=== PATIENT | female | born 1945 | race Caucasian/White ===

== ENCOUNTER 2019-03-10 01:13 | Emergency (ER) | payer MEDICARE ==
[~2019-03-10] VITALS: Ht 154.9 cm; Wt 72.6 kg
--- NOTE | ~2019-03-10 | EKG ---
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
[~2019-03-10 01:13] MED LIST: ALLEGRA180 MG PO; AMOXICILLIN500 MG PO; AMPICILLIN500 MG PO; ANUSOL HC30 GM PO; ASPI-COR81 M1 PO; ATIVAN1 MG PO; AUGMENTIN 875875 MG PO; BACTRIM DS 8001 TA1 PO; BENTYL10 MG PO; CARDIZEM CD120 MG PO; CLARITIN10 MG PO; COQ10250 MG PO; COREG25 MG PO; COUMADIN1 MG PO; COUMADIN5 MG PO; COZAAR50 MG PO; DYAZIDE 25 MG-31 CAP PO; ELAVIL25 MG PO; FLONASE ALLERG9.9 ML NAS; HYDROCODONE BIT1 T11 PO; KLOR-CON 1010 ME1 PO; LEVOFLOXACIN500 MG PO; LOMOTIL 0.025 M1 TA1 PO; MIRALAX POWDER255 GM PO; NASAREL0.025 MG/1 INH; PERCOCET 325 MG1 TA5 PO; PROPAFENONE150 MG PO; REGLAN5 MG PO; TIKOSYN0.5 MG PO; TRAMADOL HCL50 MG PO; TYLENOL 8 HOUR650 MG PO; VICODIN 5/500 505 MG PO; WELLBUTRIN SR150 MG PO; WELLBUTRIN75 MG PO; Wellbutrin Sr100 MG PO; XANAX0.25 MG PO; XANAX0.5 MG PO; XANAX1 MG PO; XARE20MG PO; XARELTO10 PO; ZANTAC150 MG PO; ZOFRAN ODT4 MG SL; ZOLOFT100 MG PO; ZOLOFT50 MG PO; Zofran4 MG PO; [UNRECOGNIZED DRUG - OTHER] PO
[2019-03-10 01:17] VITALS: BP 174/94
[2019-03-10 01:42] LABS: BASO % 0.6 % (0.0-1.0); EOS # 0.3 10*3/uL (0.0-0.4); EOS % 4.4 % (1.0-4.0); HEMATOCRIT 39.3 % (37.0-47.0); HEMOGLOBIN 13.3 g/dl (12.0-16.0); LYMPH # 2.9 10*3/uL (1.3-4.4); LYMPH % 44.5 % (27.0-41.0); MEAN CELL VOLUME 95.9 fl (81.0-99.0); MEAN CORPUSCULAR HGB 32.4 pg (27.0-31.0); MEAN CORPUSCULAR HGB CONC 33.8 g/dl (33.0-37.0); MEAN PLATELET VOLUME 9.7 fl (9.6-12.3); MONO # 0.6 10*3/uL (0.1-1.0); MONO % 8.5 % (3.0-9.0); NEUT # 2.8 10*3/uL (2.3-7.9); NEUT % 41.8 % (47.0-73.0); PLATELET COUNT AUTOMATED 188 10*3/uL (130-400); RED CELL DISTRI WIDTH 12.7 % (0-14.5); WHITE BLOOD COUNT 6.6 10*3/uL (4.8-10.8)
[2019-03-10 02:00] LABS: ALBUMIN 3.9 gm/dl (3.1-4.5); ALKALINE PHOSPHATASE 71 U/L (45-117); BUN 10 mg/dl (7-24); CHLORIDE 106 mmol/L (98-107); CREATININE 1.18 mg/dL (0.55-1.02); POTASSIUM 3.8 mmol/L (3.5-5.1); SGOT/AST 27 IU/L (3-35); SGPT/ALT 37 U/L (12-78); SODIUM 140 mmol/L (136-145); TOTAL PROTEIN 7.5 gm/dL (6.4-8.2)
[2019-03-10 02:01] LABS: ACETAMINOPHEN (TYLENOL) < 2.0 ug/ml (10-30); ETHYL ALCOHOL < 3.0 mg/dl (<3); TROPONIN I < 0.015 ng/ml (<0.045)
[2019-03-10 02:17] LABS: BILIRUBIN NEGATIVE (NEGATIVE); BLOOD TRACE-INTACT (NEGATIVE); CLARITY CLEAR (CLEAR); COLOR YELLOW (YELLOW); GLUCOSE NEGATIVE (NEGATIVE); KETONE NEGATIVE (NEGATIVE); LEUKO ESTERASE NEGATIVE (NEGATIVE); NITRITE NEGATIVE (NEGATIVE); SPECIFIC GRAVITY <= 1.005 (1.005-1.030)
[2019-03-10 02:24] LABS: BACTERIA TRACE; EPITHELIAL CELLS 0-2; RBC 0-2 rbc/hpf (0-2); WBC 0-2 wbc/hpf (0-5)
[2019-03-10 02:25] LABS: URINE AMPHETAMINES < 1000 (1000ng/ml); URINE BARBITURATES < 200 (200ng/ml); URINE BENZODIAZEPINES > 200 (200ng/ml); URINE CANNABINOIDS (THC) < 50 (50ng/ml); URINE COCAINE < 300 (300ng/ml); URINE METHADONE < 300 (300ng/ml); URINE OPIATES < 300 (300ng/ml)
[2019-03-10 02:30] LABS: URINE PHENCYCLIDINE < 25 (25ng/ml)
[2019-03-14] MEDS ORDERED: LEVOTHYROXINE100 MC1 PO (15:42)
== END 2019-03-10 03:20 | disposition home or self-care (01) ==
LOC: ED 01:13
PROVIDERS: Student in an Organized Health Care Education/Training Program
DX: F41.9 Anxiety disorder, unspecified (principal); E03.9 Hypothyroidism, unspecified; F32.9 Major depressive disorder, single episode, unspecified; Z79.899 Other long term (current) drug therapy; Z88.1 Allergy status to other antibiotic agents

== ENCOUNTER → 2019-06-30 | Outpatient (CLI) | payer MEDICARE ==
[~2019-06-30] MED LIST changes: +LEVOTHYROXINE100 MC1 PO
[2019-06-30 12:09] LABS: BILIRUBIN NEGATIVE (NEGATIVE); BLOOD 3+ (NEGATIVE); CLARITY SL CLOUDY (CLEAR); COLOR YELLOW (YELLOW); GLUCOSE NEGATIVE (NEGATIVE); KETONE NEGATIVE (NEGATIVE); LEUKO ESTERASE 3+ (NEGATIVE); NITRITE POSITIVE (NEGATIVE); PH 5.5 (5.0-9.0); SPECIFIC GRAVITY <= 1.005 (1.005-1.030); UROBILINOGEN 0.2 E.U./dl (0.2-1.0)
[2019-06-30 12:24] LABS: BACTERIA 3+; EPITHELIAL CELLS 16-20; RBC TNTC rbc/hpf (0-2); WBC TNTC wbc/hpf (0-5)
== END | disposition home or self-care (01) ==
LOC: LAB 11:05
PROVIDERS: Internal Medicine
DX: N39.0 Urinary tract infection, site not specified (principal)

== ENCOUNTER 2019-12-17 14:21 | Inpatient (IN) | payer MEDICARE ==
[2019-12-17] VITALS (9 sets, daily range): BP systolic 100–149; BP diastolic 51–93
[~2019-12-17] VITALS: Ht 157.4 cm; Wt 67.1 kg
[2019-12-17 14:54] LABS: BASO # 0.1 10*3/uL (0.0-0.1); BASO % 0.6 % (0.0-1.0); EOS # 0.2 10*3/uL (0.0-0.4); EOS % 1.8 % (1.0-4.0); HEMATOCRIT 38.1 % (37.0-47.0); HEMOGLOBIN 12.8 g/dl (12.0-16.0); LYMPH # 3.2 10*3/uL (1.3-4.4); LYMPH % 35.4 % (27.0-41.0); MEAN CELL VOLUME 96.9 fl (81.0-99.0); MEAN CORPUSCULAR HGB 32.6 pg (27.0-31.0); MEAN CORPUSCULAR HGB CONC 33.6 g/dl (33.0-37.0); MEAN PLATELET VOLUME 10.3 fl (9.6-12.3); MONO # 0.9 10*3/uL (0.1-1.0); MONO % 10.2 % (3.0-9.0); NEUT # 4.7 10*3/uL (2.3-7.9); NEUT % 51.8 % (47.0-73.0); PLATELET COUNT AUTOMATED 233 10*3/uL (130-400); RED BLOOD COUNT 3.93 10*6/uL (4.10-5.10); RED CELL DISTRI WIDTH 12.7 % (0-14.5); WHITE BLOOD COUNT 9.1 10*3/uL (4.8-10.8)
[2019-12-17 15:05] LABS: ACT PARTIAL THROMBO TIME 26.6 SECONDS (20.0-32.1)
[2019-12-17 15:10] LABS: ALBUMIN 3.9 gm/dl (3.1-4.5); ALKALINE PHOSPHATASE 70 U/L (45-117); BUN 33 mg/dl (7-24); CHLORIDE 107 mmol/L (98-107); CREATININE 1.39 mg/dL (0.55-1.02); POTASSIUM 3.4 mmol/L (3.5-5.1); SGOT/AST 87 IU/L (3-35); SGPT/ALT 74 U/L (12-78); SODIUM 141 mmol/L (136-145); TOTAL PROTEIN 7.5 gm/dL (6.4-8.2)
[2019-12-17 15:12] LABS: TROPONIN I < 0.015 ng/ml (<0.045)
--- NOTE | 2019-12-17 15:30 | NUR ---
RECEIVED REPORT FROM LACHELLE AG
--- NOTE | 2019-12-17 15:45 | NUR ---
TITRATE CARDIZEM TO 7.5 ML/HR, SEE VS AND EMAR.
--- NOTE | 2019-12-17 16:33 | NUR ---
Titrated cardizem to 10 mg/hr per Dr Zhang's order.bp 130/63, hr 133-150's. pt resps easy on RA. Sitting up in bed with family at bedside. Will continue to monitor.
--- NOTE | 2019-12-17 16:55 | NUR ---
Tirated cardizem gtt to 15 mg/hr per titration order. BP 145/73,HR 145-160.
--- NOTE | 2019-12-17 17:07 | NUR ---
DR JENSEN IS PATIENTS NURSE STAFF. PACER RECENTLY CHECKED WITHOUT ISSUE.
[2019-12-17] MEDS ORDERED: DILTIAZEM240 M1 PO (17:41)
[2019-12-17] MEDS ORDERED: XANAX0.25 MG PO (17:42)
[2019-12-17] MEDS ORDERED: COZAAR50 M1 PO (17:44)
[2019-12-17] MEDS ORDERED: XARE20MG PO (17:51)
[2019-12-17] MEDS ORDERED: XANAX0.5 MG PO (17:52)
--- NOTE | 2019-12-17 18:00 | NUR ---
[facility] NOTIFIED OF CONSULT
--- NOTE | 2019-12-17 19:00 | NUR ---
RESTLESS, SINGING, IN CONSTANT MOTION WITH ARMS AND LEGS. DR. CAREY CALLED AND NOTIFIED. WILL ASSESS LATER FOR CT HEAD
--- NOTE | 2019-12-17 20:00 | NUR ---
PT RESTING IN BED AWAKE, ALERT TO PERSON AND PLACE, GETS VERY AGITATED WITH GETTING CLOSE TO PT. PT SINGING AT TIMES AND DRAWS BACK WHRN GETTING NEAR. PT MAKES YOU ASK FOR PERMISSION TO TOUCH HER. VERY OBCESSED WITH TIME. VERY ODD BEHAVIOR. RESP NONLABORED. NO ACUTE DISTRESS NOTED. IVF'S INFUSING ORDERED. DENIES ANY PAIN OR DISCOMFORT AT THIS TIME.
[2019-12-17 21:09] LABS: BILIRUBIN NEGATIVE (NEGATIVE); BLOOD 3+ (NEGATIVE); CLARITY SL CLOUDY (CLEAR); COLOR YELLOW (YELLOW); GLUCOSE NEGATIVE (NEGATIVE); KETONE 3+ (NEGATIVE); SPECIFIC GRAVITY 1.025 (1.005-1.030)
[2019-12-17 21:10] LABS: LEUKO ESTERASE 3+ (NEGATIVE); NITRITE POSITIVE (NEGATIVE); PH 6.5 (5.0-9.0); UROBILINOGEN 0.2 E.U./dl (0.2-1.0)
[2019-12-17 21:11] LABS: BACTERIA 3+; WBC TNTC wbc/hpf (0-5)
[2019-12-18] VITALS (11 sets, daily range): BP systolic 109–134; BP diastolic 48–87
--- NOTE | 2019-12-18 04:45 | NUR ---
PT CONTINUES TO BE RESTLESS AND AGITATED. KEEPS PULLING AT MONITOR LEADS. HALLUCINATING AND TALKING TO NO ONE. ATTEMPTS TO REORIENT PT ARE UNEFFECTIVE. DR CAREY NOTIFIED AND ASKED IF STILL WANTED PT TO GO FOR CT OF HEAD. DR CAREY SAID NOT AT THIS TIME SINCE PT IS STILL SO AGITATED. WILL LET DAYTEAM DECIDE.
[2019-12-18 06:47] LABS: BASO # 0.1 10*3/uL (0.0-0.1); BASO % 0.7 % (0.0-1.0); EOS # 0.2 10*3/uL (0.0-0.4); EOS % 2.4 % (1.0-4.0); HEMATOCRIT 37.4 % (37.0-47.0); HEMOGLOBIN 12.3 g/dl (12.0-16.0); LYMPH # 2.7 10*3/uL (1.3-4.4); LYMPH % 29.8 % (27.0-41.0); MEAN CELL VOLUME 97.4 fl (81.0-99.0); MEAN CORPUSCULAR HGB CONC 32.9 g/dl (33.0-37.0); MEAN PLATELET VOLUME 10.3 fl (9.6-12.3); MONO % 10.8 % (3.0-9.0); NEUT # 5.2 10*3/uL (2.3-7.9); NEUT % 56.1 % (47.0-73.0); PLATELET COUNT AUTOMATED 190 10*3/uL (130-400); RED BLOOD COUNT 3.84 10*6/uL (4.10-5.10); RED CELL DISTRI WIDTH 12.6 % (0-14.5); WHITE BLOOD COUNT 9.2 10*3/uL (4.8-10.8)
[2019-12-18 07:08] LABS: CHLORIDE 112 mmol/L (98-107); CREATININE 0.77 mg/dL (0.55-1.02); PHOSPHOROUS 2.3 mg/dL (2.5-4.9); POTASSIUM 3.4 mmol/L (3.5-5.1); SODIUM 144 mmol/L (136-145)
[2019-12-18 07:09] LABS: BUN 17 mg/dl (7-24)
--- NOTE | 2019-12-18 08:34 | NUR ---
RESTING IN BED. ANXIOUS. DOES HAVE FLIGHT OF IDEAS. ALERT TO PERSON ONLY. BREAKFAST HERE AND REFUSES TO EAT.
--- NOTE | 2019-12-18 11:06 | NUR ---
OBSESSED WITH TIME, COUNTING, AND HAVING TRUST ISSUES WITH STAFF. UP INTO CHAIR AND PLACED BACK TO BED. DR. CASTRO HERE SEE PATIENT
--- NOTE | 2019-12-18 11:33 | NUR ---
YESSENIA HERE TO SEE PATIENT FROM PSYCH
--- NOTE | 2019-12-18 17:00 | NUR ---
PATIENT STATES "MY HEART MONITOR CANNOT BE PLACED OVER PACERMAKER SITE BECAUSE MY HEART DOCTOR SAID IT WOULD NOT CLIENT DEVELOPMENT CONSULTANT ACCURATELY." TALKS IN CIRCLES. ASKS NURSES NAME REPEATEDLY. WANTS THINGS HER WAY AND REQUESTS PERMISSION TO DO ANY CARE.
--- NOTE | 2019-12-18 18:29 | NUR ---
DR. GARRIDO HERE TO SEE PATIENT
--- NOTE | 2019-12-18 20:00 | NUR ---
PT RESTING IN BED AWAKE, CONFUSED AND AGITATED. RESP NONLABORED. NO ACUTE DISTRESS NOTED. NO COMPLAINTS VOICED. IV PATENT AND IVF'S INFUSING ORDERED WITHOUT DIFFICULTY.
[2019-12-19] VITALS: BP 119/62
--- NOTE | 2019-12-19 02:50 | NUR ---
MEDICATED WITH TYLENOL PER PRN ORDER FOR C/O HEADACHE.
[2019-12-19 04:00] VITALS: BP 134/73
--- NOTE | 2019-12-19 04:38 | NUR ---
PT REFUSED BLOOD WORK THIS AM. ATTEMPTED TO HIT Night Out. DR CHEN NOTIFIED.
--- NOTE | 2019-12-19 05:00 | NUR ---
PT VERY AGITATED AND COMBATIVE. CURSING AT STAFF AND ATTEMPTING TO HIT EVERYONE. DR CHEN HERE AND ORDERED HALDOL 2.5MG IV NOW.
--- NOTE | 2019-12-19 05:40 | NUR ---
PT STILL COMBATIVE AND AGITATED. DR CHEN HERE AND SAID TO GIVE ANOTHER DOSE OF HALDOL 2.5MG IV NOW.
[2019-12-19 08:00] VITALS: BP 106/70
--- NOTE | 2019-12-19 08:45 | NUR ---
ALERT AND AWARE OF WHERE SHE IS, VERY CHILDLIKE, SINGING, COUNTING, BUT THEN PT WILL SUDDENLY ATTEMPT TO SWING AT STAFF, SITTER AT BEDSIDE
--- NOTE | 2019-12-19 09:00 | NUR ---
Aspnet Developer in to see patient. There is currently a 1:1 sitter in the room and patient is resting with her eyes closed. Will follow up at a later time.
--- NOTE | 2019-12-19 10:15 | NUR ---
UP TO BSC WITH MINIMAL ASSIST PT CONTINUES TO ACT CHILDLIKE
--- NOTE | 2019-12-19 10:45 | NUR ---
PT REFUSES ECHO
[2019-12-19 12:00] VITALS: BP 120/59
--- NOTE | 2019-12-19 13:48 | NUR ---
PT REFUSES TO LEAVE MONITOR ON DR GARRIDO UPDATED ON ECHO REFUSAL
--- NOTE | 2019-12-19 15:47 | NUR ---
REFUSES VITALS AND ASSESS,ENT, PT WILL NOT ALLOW ANYONE TO COME NEAR HER
--- NOTE | 2019-12-19 19:52 | NUR ---
PT. REFUSING TO WEAR MONITOR OR ATTACH LEADS TO CHEST. UNABLE TO ASSESS CARDIAC RHYTHM. PT. UNCOOPERATIVE WITH CARE AND REMAINS CONFUSED AND AT TIMES COMBATIVE. 1:1 SITTER AT BEDSIDE. IVF CONTINUE ORDERED VIA LH, HEP LOCK IN RA ASYMPT. LUNGS DIMINISHED BUT CLEAR. ABDOMEN SOFT ,NONDISTENDED AND NORMO. NO PERIPHERAL EDEMA NOTED. RESP. EASY AND REG NO DISTRESS. MAUREEN MAKI RN
[2019-12-19 20:00] VITALS: BP 157/66
[2019-12-20] VITALS: BP 128/66
[2019-12-20 04:00] VITALS: BP 165/74
[2019-12-20 04:52] LABS: CHLORIDE 111 mmol/L (98-107); CREATININE 0.64 mg/dL (0.55-1.02); POTASSIUM 3.5 mmol/L (3.5-5.1); SODIUM 146 mmol/L (136-145)
[2019-12-20 04:55] LABS: BUN 5 mg/dl (7-24)
[2019-12-20 06:04] LABS: BASO % 0.7 % (0.0-1.0); EOS # 0.3 10*3/uL (0.0-0.4); EOS % 4.3 % (1.0-4.0); HEMATOCRIT 35.5 % (37.0-47.0); HEMOGLOBIN 11.5 g/dl (12.0-16.0); LYMPH # 2.3 10*3/uL (1.3-4.4); LYMPH % 38.1 % (27.0-41.0); MEAN CELL VOLUME 98.9 fl (81.0-99.0); MEAN CORPUSCULAR HGB CONC 32.4 g/dl (33.0-37.0); MEAN PLATELET VOLUME 10.7 fl (9.6-12.3); MONO # 0.6 10*3/uL (0.1-1.0); MONO % 9.5 % (3.0-9.0); NEUT # 2.9 10*3/uL (2.3-7.9); NEUT % 47.2 % (47.0-73.0); PLATELET COUNT AUTOMATED 168 10*3/uL (130-400); RED BLOOD COUNT 3.59 10*6/uL (4.10-5.10); RED CELL DISTRI WIDTH 12.6 % (0-14.5)
--- NOTE | 2019-12-20 08:15 | NUR ---
Head is covered with blanket. Refuses heart monitor and temperature being taken. Pulse ox 96% on room air. Lungs clear bilaterally. Refuses to speak. Nods yes and no when questions asked. When asked if she is afraid, she nods yes. Breakfast ordered
--- NOTE | 2019-12-20 09:00 | NUR ---
Sitting in chair at window. Yelling out "here pretty boy."
--- NOTE | 2019-12-20 11:30 | NUR ---
hand over chest and states that my heart is not working right until i place my hand over my chest.
[2019-12-20 12:00] VITALS: BP 141/76; BP 156/78
--- NOTE | 2019-12-20 12:13 | NUR ---
CALLED [facility] AND TALKED WITH JAYA. THEY STATE THAT PATIENT WILL NOT BE ABLE TO COME TODAY TILL AFTER 4P WHEN A BED WILL BE AVAILABLE.
--- NOTE | 2019-12-20 12:16 | NUR ---
Received call from patients daughter Ilene. She is calling to state her fears/concerns regarding her mothers suicidal ideations. She said she has attempted this in the past and patients brother just committed suicide May of 2019. I explained that the patient is alert and oriented and would have to sign herelf into U and she is refusing to do so. Unless there is a reason to believe this patient is an immediate harm to herself or others then patient can be pink slippped by physician into the bhu. She asked if there was a SW to speak with her mother. I told her I would let MARGY Grady know and ask him to reach out to this patient and I would pass her concerns onto case management/Dr. Richardson. Daughter stated the reason she tried this time is because the patient and her boyfriend were discussing their relationship and patient was becoming upset. She is bipolar/depression. The boyfriend asked her to calm down and take her meds to help her calm down. Patient then stated "if you want me to take my meds then I'll take my meds!" she then took handfulls of B/P meds and ativan. Patients boyfriend left the house and called [address] his way out. I passed info along to AKBAR and MARGY.
[2019-12-20] MEDS ORDERED: CEFUROXIME AXE500 MG PO (12:32)
[2019-12-20] MEDS ORDERED: VITAMIN D3125 MC1 PO (12:32)
--- NOTE | 2019-12-20 12:47 | NUR ---
Attempted to reach son, Gonzalo, who is at work. Spoke to [id number] regarding discharge planning. Patient normally lives at home by herself and her dog. The [id number] is currently taking care of her dog. She is normally independent in her ADLs and ambulation. Discussed a stay on U and family is agreeable. She states this is the second time this has happened to her. Plan is for patient to return home as long as she is able to.
--- NOTE | 2019-12-20 14:00 | NUR ---
TRANSFERRED TO ROOM 524 VIA CHAIR. REPORT CALLED TO MONICA
--- NOTE | 2019-12-20 14:31 | NUR ---
Spoke to Alea at [employer] regarding inpatient mental health authorization. Patient is authorized for 3 days, NRD 12/21. Auth # [id number]. Concurrent reviewer will be Cristina [phone]. Notified [facility] c4 planner, nurse, and hospitalist nurse director.
--- NOTE | 2019-12-20 14:43 | NUR ---
GIVEN TYLENOL AT THIS TIME FOR C/O LEFT EAR PAIN OF 5/10. WILL CONT TO MONITOR. CALL LIGHT IN REACH.
[2019-12-20 16:00] VITALS: BP 149/69
--- NOTE | 2019-12-20 18:08 | NUR ---
PT DISCHARGED TO U AT THIS TIME. REPORT GIVEN TO NURSE.
== END 2019-12-20 18:08 | disposition home health service (06) | DRG 682 ==
LOC: ED 14:21 → EDHOLD 16:57 → ICCU 16:57 → 5E 12-20 13:32
PROVIDERS: Emergency Medicine; Internal Medicine; ADMIT Internal Medicine
DX: N17.0 Acute kidney failure with tubular necrosis (principal); G93.41 Metabolic encephalopathy; F23 Brief psychotic disorder; Q60.0 Renal agenesis, unilateral; N39.0 Urinary tract infection, site not specified; I48.0 Paroxysmal atrial fibrillation; E87.6 Hypokalemia; R73.9 Hyperglycemia, unspecified; E03.9 Hypothyroidism, unspecified; F43.10 Post-traumatic stress disorder, unspecified; I12.9 Hypertensive chronic kidney disease with stage 1 through stage 4 chronic kidney disease, or unspecified chronic kidney disease; N18.9 Chronic kidney disease, unspecified; F41.9 Anxiety disorder, unspecified; G89.29 Other chronic pain; F32.9 Major depressive disorder, single episode, unspecified; Z90.710 Acquired absence of both cervix and uterus; K58.9 Irritable bowel syndrome, unspecified; Z88.1 Allergy status to other antibiotic agents; Z82.3 Family history of stroke; Z82.49 Family history of ischemic heart disease and other diseases of the circulatory system; Z95.0 Presence of cardiac pacemaker; Z79.899 Other long term (current) drug therapy; Z79.01 Long term (current) use of anticoagulants

== ENCOUNTER → 2023-12-31 | Outpatient (CLI) | payer MEDICARE ==
[~2023-12-31] MED LIST changes: +AMOX-CLAV 875-1 EACH PO; +CARDIZEM120 MG PO; +CEFUROXIME AXE500 MG PO; +CETIRIZINE10 MG PO; +COLACE100 MG PO; +COZAAR50 M1 PO; +DEPAKOTE ER250 MG PO; +DILTIAZEM240 M1 PO; +DIVALPROEX SOD250 MG PO; +EXELON13.3 MG/21 T; +FEOSOL,FER220 MG/5 M PO; +FER-IN-SOL15 MG/1 ML PO; +LEVOXYL88 MCG PO; +MEGA BIOTIN10000 MCG PO; +MELATONIN3 MG PO; +MUCUS RELIEF600 MG PO; +NAMENDA-5 PO; +NEURONTIN300 MG PO; +OMEPRAZOLE40 MG PO; +PALIPERIDONE ER3 MG PO; +PILOCARPINE HCL5 MG PO; +VITAMIN D3125 MC1 PO
== END | disposition home or self-care (01) ==
LOC: RAD 12:16
PROVIDERS: ATTEND Nurse Practitioner Family
DX: M25.552 Pain in left hip (principal)

== ENCOUNTER 2024-03-05 07:20 | Emergency (ER) | payer MEDICARE, MEDICAID ==
[~2024-03-05] VITALS: Ht 152.4 cm; Wt 66.2 kg
[2024-03-05 07:40] VITALS: BP 116/56
[2024-03-05] MEDS ORDERED: Ketorolac Tromethamine 30 MG/ML VIAL IM ONE (07:45)
[2024-03-05] MEDS ORDERED: DIGOXIN125 MCG PO (07:50)
[2024-03-05] MEDS ORDERED: TRAMADOL HCL50 MG PO (09:17)
== END 2024-03-05 09:34 | disposition home or self-care (01) ==
LOC: ED 07:20
DX: S92.352A Displaced fracture of fifth metatarsal bone, left foot, initial encounter for closed fracture (principal); G43.909 Migraine, unspecified, not intractable, without status migrainosus; I10 Essential (primary) hypertension; F32.A Depression, unspecified; F41.9 Anxiety disorder, unspecified; I48.91 Unspecified atrial fibrillation; Z88.1 Allergy status to other antibiotic agents; Z88.8 Allergy status to other drugs, medicaments and biological substances; Z90.710 Acquired absence of both cervix and uterus; Z90.89 Acquired absence of other organs; Z98.890 Other specified postprocedural states; W19.XXXA Unspecified fall, initial encounter; Y93.89 Activity, other specified; Y92.89 Other specified places as the place of occurrence of the external cause; Y99.8 Other external cause status

== ENCOUNTER → 2024-04-15 | Outpatient (CLI) | payer MEDICARE ==
[~2024-04-15] MED LIST changes: +DIGOXIN125 MCG PO
[2024-04-15 12:29] LABS: BASO % 0.6 % (0.0-1.0); EOS # 0.2 10*3/uL (0.0-0.4); EOS % 2.3 % (1.0-4.0); HEMATOCRIT 39.5 % (37.0-47.0); LYMPH # 1.6 10*3/uL (1.3-4.4); LYMPH % 21.8 % (27.0-41.0); MEAN CELL VOLUME 98.8 fl (81.0-99.0); MEAN CORPUSCULAR HGB 31.8 pg (27.0-31.0); MEAN CORPUSCULAR HGB CONC 32.2 g/dl (33.0-37.0); MEAN PLATELET VOLUME 9.9 fl (9.6-12.3); MONO # 0.6 10*3/uL (0.1-1.0); MONO % 8.3 % (3.0-9.0); NEUT # 4.8 10*3/uL (2.3-7.9); NEUT % 66.3 % (47.0-73.0); PLATELET COUNT AUTOMATED 147 10*3/uL (130-400); RED CELL DISTRI WIDTH 13.8 % (0-14.5); WHITE BLOOD COUNT 7.3 10*3/uL (4.8-10.8)
[2024-04-15 13:01] LABS: BUN 10 mg/dl (9-23); CHLORIDE 105 mmol/L (98-107); POTASSIUM 4.7 mmol/L (3.4-5.1)
== END | disposition home or self-care (01) ==
LOC: LAB 12:11
DX: I48.0 Paroxysmal atrial fibrillation (principal)

== ENCOUNTER 2024-04-20 08:03 | Emergency (ER) | payer MEDICARE ==
[~2024-04-20] VITALS: Ht 180.3 cm; Wt 63.5 kg
[2024-04-20 08:10] VITALS: BP 135/83
[2024-04-20] MEDS ORDERED: SODIUM CHLORIDE 0.9% 1,000 ML IV ONE (08:25)
[2024-04-20 08:35] LABS: BASO % 0.5 % (0.0-1.0); EOS # 0.2 10*3/uL (0.0-0.4); EOS % 2.2 % (1.0-4.0); HEMATOCRIT 39.4 % (37.0-47.0); LYMPH # 2.1 10*3/uL (1.3-4.4); LYMPH % 23.8 % (27.0-41.0); MEAN CELL VOLUME 98.3 fl (81.0-99.0); MEAN CORPUSCULAR HGB 31.9 pg (27.0-31.0); MEAN CORPUSCULAR HGB CONC 32.5 g/dl (33.0-37.0); MEAN PLATELET VOLUME 9.9 fl (9.6-12.3); MONO # 0.9 10*3/uL (0.1-1.0); MONO % 10.4 % (3.0-9.0); NEUT # 5.5 10*3/uL (2.3-7.9); NEUT % 62.6 % (47.0-73.0); PLATELET COUNT AUTOMATED 166 10*3/uL (130-400); RED BLOOD COUNT 4.01 10*6/uL (4.10-5.10); RED CELL DISTRI WIDTH 13.7 % (0-14.5); WHITE BLOOD COUNT 8.8 10*3/uL (4.8-10.8)
[2024-04-20 08:44] LABS: BILIRUBIN Negative (Negative); BLOOD 1+ (Negative); CLARITY Cloudy (Clear); COLOR Yellow (Yellow); GLUCOSE Negative (Negative); KETONE Trace (Negative); LEUKO ESTERASE 1+ (Negative); NITRITE Negative (Negative); SPECIFIC GRAVITY >= 1.030 (1.001-1.030)
[2024-04-20 08:52] LABS: ALKALINE PHOSPHATASE 40 U/L (46-116); BUN 10 mg/dl (9-23); CHLORIDE 100 mmol/L (98-107); POTASSIUM 3.5 mmol/L (3.4-5.1); TOTAL PROTEIN 7.3 gm/dL (6.0-8.0)
[2024-04-20 08:56] LABS: BACTERIA TRACE; EPITHELIAL CELLS TNTC; WBC 16-20 wbc/hpf (0-5)
[2024-04-20 08:58] LABS: SGPT/ALT < 7 U/L (5-49)
== END 2024-04-20 10:55 | disposition home or self-care (01) ==
LOC: ED 08:03
PROVIDERS: Internal Medicine
DX: E86.0 Dehydration (principal); R53.1 Weakness; R19.7 Diarrhea, unspecified; G43.909 Migraine, unspecified, not intractable, without status migrainosus; I10 Essential (primary) hypertension; F32.A Depression, unspecified; F41.9 Anxiety disorder, unspecified; I48.91 Unspecified atrial fibrillation; Z88.1 Allergy status to other antibiotic agents; Z88.8 Allergy status to other drugs, medicaments and biological substances; Z90.89 Acquired absence of other organs; Z90.710 Acquired absence of both cervix and uterus; Z98.890 Other specified postprocedural states

== ENCOUNTER 2024-04-24 18:52 | Inpatient (IN) | payer MEDICARE ==
[~2024-04-24] VITALS: Ht 152.4 cm; Wt 67.4 kg
[2024-04-24 19:03] VITALS: BP 125/58
[2024-04-24] MEDS ORDERED: SODIUM CHLORIDE 0.9% 1,000 ML IV ONE (19:20)
[2024-04-24 19:36] LABS: BASO % 0.5 % (0.0-1.0); EOS # 0.1 10*3/uL (0.0-0.4); EOS % 1.2 % (1.0-4.0); HEMATOCRIT 34.2 % (37.0-47.0); LYMPH % 23.2 % (27.0-41.0); MEAN CELL VOLUME 101.8 fl (81.0-99.0); MEAN CORPUSCULAR HGB 32.1 pg (27.0-31.0); MEAN CORPUSCULAR HGB CONC 31.6 g/dl (33.0-37.0); MEAN PLATELET VOLUME 10.7 fl (9.6-12.3); MONO # 0.8 10*3/uL (0.1-1.0); MONO % 9.1 % (3.0-9.0); NEUT # 5.7 10*3/uL (2.3-7.9); NEUT % 65.7 % (47.0-73.0); PLATELET COUNT AUTOMATED 154 10*3/uL (130-400); RED BLOOD COUNT 3.36 10*6/uL (4.10-5.10); RED CELL DISTRI WIDTH 14.4 % (0-14.5); WHITE BLOOD COUNT 8.6 10*3/uL (4.8-10.8)
[2024-04-24 20:05] LABS: ALKALINE PHOSPHATASE 39 U/L (46-116); BUN 14 mg/dl (9-23); CHLORIDE 107 mmol/L (98-107); LIPASE 21 U/L (12-53); POTASSIUM 4.1 mmol/L (3.4-5.1); TOTAL PROTEIN 6.5 gm/dL (6.0-8.0)
[2024-04-24 20:09] LABS: SGPT/ALT < 7 U/L (5-49)
[2024-04-24 21:39] LABS: BILIRUBIN 1+ (Negative); BLOOD 3+ (Negative); CLARITY Turbid (Clear); COLOR Dark Yellow (Yellow); GLUCOSE Negative (Negative); KETONE 1+ (Negative); LEUKO ESTERASE 3+ (Negative); NITRITE Positive (Negative); SPECIFIC GRAVITY 1.025 (1.001-1.030)
[2024-04-24] MEDS ORDERED: Ceftriaxone Sodium 1 GM/10 ML SYR IV ONE (21:50)
[2024-04-24 21:51] LABS: BACTERIA 4+; WBC TNTC wbc/hpf (0-5)
[2024-04-24] MEDS ORDERED: ELIQUIS5 M1 PO (21:59)
[2024-04-24 22:14] VITALS: BP 132/86
[2024-04-24] MEDS ORDERED: ACETAMINOPHEN 325 MG TAB PO PRN (23:35)
[2024-04-24] MEDS ORDERED: Magnesium Hydroxide 30 ML UDC PO PRN (23:35)
[2024-04-24] MEDS ORDERED: BISACODYL 5 MG TAB PO PRN (23:35)
[2024-04-24] MEDS ORDERED: BISACODYL 10 MG SUPP R PRN (23:35)
[2024-04-24] MEDS ORDERED: Acetaminophen/Hydrocodone 5 MG/325 MG TABLET PO PRN (23:35)
[2024-04-24] MEDS ORDERED: Ondansetron Hydrochloride 4 MG/2 ML VIAL IV PRN (23:35)
[2024-04-24] MEDS ORDERED: ACETAMINOPHEN 650 MG SUPP R PRN (23:35)
[2024-04-24] MEDS ORDERED: FUROSEMIDE 20 MG/2 ML VIAL IV ONE (23:55)
[2024-04-24] MEDS ORDERED: methylPREDNISolone sod succ 40 MG VIAL IV SCH (23:55)
[2024-04-25] VITALS (8 sets, daily range): BP systolic 85–143; BP diastolic 43–91
[2024-04-25] MEDS ORDERED: Albuterol Sulf/Ipratropium 3 ML VIAL NEB SCH
[2024-04-25] MEDS ORDERED: SODIUM CHLORIDE 0.9% 100 ML BAG IV ONE (01:15)
[2024-04-25] MEDS ORDERED: IOHEXOL 350 MG/ML 100 ML VIAL IV ONE (01:15)
[2024-04-25] MEDS ORDERED: hydrOXYzine pamoate 25 MG CAP PO ONE ×2 (01:15→23:35)
[2024-04-25] MEDS ORDERED: ASPIRIN 325 MG TAB PO ONE (02:00)
[2024-04-25 03:26] LABS: BASO % 0.3 % (0.0-1.0); EOS % 0.1 % (1.0-4.0); HEMATOCRIT 40.2 % (37.0-47.0); LYMPH # 0.8 10*3/uL (1.3-4.4); LYMPH % 6.3 % (27.0-41.0); MEAN CELL VOLUME 100.8 fl (81.0-99.0); MEAN CORPUSCULAR HGB 31.8 pg (27.0-31.0); MEAN CORPUSCULAR HGB CONC 31.6 g/dl (33.0-37.0); MEAN PLATELET VOLUME 10.5 fl (9.6-12.3); MONO # 0.4 10*3/uL (0.1-1.0); MONO % 3.2 % (3.0-9.0); NEUT # 11.3 10*3/uL (2.3-7.9); NEUT % 89.5 % (47.0-73.0); PLATELET COUNT AUTOMATED 185 10*3/uL (130-400); RED BLOOD COUNT 3.99 10*6/uL (4.10-5.10); RED CELL DISTRI WIDTH 14.3 % (0-14.5); WHITE BLOOD COUNT 12.6 10*3/uL (4.8-10.8)
[2024-04-25 03:47] LABS: BUN 12 mg/dl (9-23); CHLORIDE 105 mmol/L (98-107); POTASSIUM 4.2 mmol/L (3.4-5.1)
[2024-04-25] MEDS ORDERED: HEPARIN SODIUM 250 ML IV SCH (03:50)
[2024-04-25] MEDS ORDERED: Piperacillin Sodium/Tazobact 50 ML IV ONE (04:00)
[2024-04-25] MEDS ORDERED: OMEPRAZOLE 20 MG CAP PO SCH (06:00)
[2024-04-25] MEDS ORDERED: MAGNESIUM SULFATE 50 ML IV ONE (07:15)
[2024-04-25] MEDS ORDERED: CARVEDILOL 25 MG TAB PO SCH (09:00)
[2024-04-25] MEDS ORDERED: Piperacillin Sodium/Tazobact 2.25 GM in SODIUM CHLORIDE 0.9% 50 ML IV SCH (10:00)
[2024-04-25] MEDS ORDERED: Sertraline Hydrochloride 50 MG TAB PO SCH (10:00)
[2024-04-25] MEDS ORDERED: APIXABAN 5 MG TAB PO SCH (10:00)
[2024-04-25] MEDS ORDERED: ATORVASTATIN CALCIUM 40 MG TABLET PO SCH (10:00)
[2024-04-25] MEDS ORDERED: DIVALPROEX ER 250 MG TAB PO SCH ×2 (10:00→22:00)
[2024-04-25] MEDS ORDERED: Cetirizine Hydrochloride 10 MG TAB PO SCH (10:00)
[2024-04-25] MEDS ORDERED: GABAPENTIN 300 MG CAP PO SCH ×2 (10:00→22:00)
[2024-04-25] MEDS ORDERED: methylPREDNISolone sod succ 40 MG VIAL IV SCH (11:08)
[2024-04-25] MEDS ORDERED: SODIUM CHLORIDE 0.9% 500 ML IV ONE (17:05)
[2024-04-25] MEDS ORDERED: CARVEDILOL 3.125 MG TAB PO SCH (22:00)
[2024-04-25] MEDS ORDERED: Ceftriaxone Sodium 1 GM in SYRINGE INFUSION 10 ML IV SCH (22:00)
[2024-04-26] VITALS: BP 130/63
[2024-04-26 06:36] LABS: BASO % 0.1 % (0.0-1.0); HEMATOCRIT 34.8 % (37.0-47.0); LYMPH # 0.8 10*3/uL (1.3-4.4); MEAN CELL VOLUME 100.6 fl (81.0-99.0); MEAN CORPUSCULAR HGB 32.1 pg (27.0-31.0); MEAN CORPUSCULAR HGB CONC 31.9 g/dl (33.0-37.0); MEAN PLATELET VOLUME 11.2 fl (9.6-12.3); MONO # 0.2 10*3/uL (0.1-1.0); MONO % 2.5 % (3.0-9.0); NEUT # 7.4 10*3/uL (2.3-7.9); NEUT % 87.9 % (47.0-73.0); PLATELET COUNT AUTOMATED 153 10*3/uL (130-400); RED BLOOD COUNT 3.46 10*6/uL (4.10-5.10); RED CELL DISTRI WIDTH 14.3 % (0-14.5); WHITE BLOOD COUNT 8.4 10*3/uL (4.8-10.8)
[2024-04-26 06:50] LABS: BUN 16 mg/dl (9-23); CHLORIDE 103 mmol/L (98-107); POTASSIUM 3.9 mmol/L (3.4-5.1)
[2024-04-26 08:00] VITALS: BP 125/81
[2024-04-26] MEDS ORDERED: ASPIRIN ENTERIC COATED 81 MG TAB PO SCH (10:00)
[2024-04-26] MEDS ORDERED: SYNTHROID,LEVO88 MCG PO (11:31)
[2024-04-26 12:00] VITALS: BP 152/84
[2024-04-26] MEDS ORDERED: hydrOXYzine pamoate 25 MG CAP PO ONE ×2 (12:05→21:40)
[2024-04-26 16:00] VITALS: BP 168/90
[2024-04-26 20:00] VITALS: BP 134/80; BP 134/85
[2024-04-27] VITALS: BP 130/82; BP 156/91
[2024-04-27 06:42] LABS: HEMATOCRIT 34.4 % (37.0-47.0); LYMPH # 0.8 10*3/uL (1.3-4.4); LYMPH % 9.6 % (27.0-41.0); MEAN CELL VOLUME 99.4 fl (81.0-99.0); MEAN CORPUSCULAR HGB 32.1 pg (27.0-31.0); MEAN CORPUSCULAR HGB CONC 32.3 g/dl (33.0-37.0); MEAN PLATELET VOLUME 11.4 fl (9.6-12.3); MONO # 0.4 10*3/uL (0.1-1.0); MONO % 5.2 % (3.0-9.0); NEUT # 6.8 10*3/uL (2.3-7.9); NEUT % 84.3 % (47.0-73.0); PLATELET COUNT AUTOMATED 151 10*3/uL (130-400); RED BLOOD COUNT 3.46 10*6/uL (4.10-5.10); RED CELL DISTRI WIDTH 14.5 % (0-14.5)
[2024-04-27 08:00] VITALS: BP 159/83
[2024-04-27] MEDS ORDERED: Levothyroxine Sodium 88 MCG TAB PO SCH (10:00)
[2024-04-27 14:00] VITALS: BP 147/92
[2024-04-27] MEDS ORDERED: DIGOXIN 125 MCG TAB PO SCH (14:00)
[2024-04-27 16:00] VITALS: BP 130/60
[2024-04-27 20:30] VITALS: BP 160/86
[2024-04-27] MEDS ORDERED: hydrOXYzine pamoate 25 MG CAP PO ONE (21:10)
[2024-04-28] VITALS: BP 156/83
[2024-04-28 06:20] LABS: BASO % 0.1 % (0.0-1.0); LYMPH % 10.8 % (27.0-41.0); MEAN CELL VOLUME 98.6 fl (81.0-99.0); MEAN CORPUSCULAR HGB 31.8 pg (27.0-31.0); MEAN CORPUSCULAR HGB CONC 32.3 g/dl (33.0-37.0); MONO # 0.8 10*3/uL (0.1-1.0); MONO % 8.6 % (3.0-9.0); NEUT # 7.2 10*3/uL (2.3-7.9); NEUT % 79.8 % (47.0-73.0); PLATELET COUNT AUTOMATED 179 10*3/uL (130-400); RED BLOOD COUNT 3.55 10*6/uL (4.10-5.10); RED CELL DISTRI WIDTH 14.6 % (0-14.5); WHITE BLOOD COUNT 9.1 10*3/uL (4.8-10.8)
[2024-04-28 08:00] VITALS: BP 153/91
[2024-04-28] MEDS ORDERED: DIGOXIN 125 MCG TAB PO SCH (08:55)
[2024-04-28] MEDS ORDERED: hydrOXYzine pamoate 25 MG CAP PO PRN (08:55)
[2024-04-28] MEDS ORDERED: DILTIAZEM CD 120 MG CAP PO SCH (10:00)
[2024-04-28 12:00] VITALS: BP 150/89
[2024-04-28 16:00] VITALS: BP 148/90
[2024-04-28 20:00] VITALS: BP 156/96
[2024-04-29] VITALS: BP 153/80
[2024-04-29 08:00] VITALS: BP 158/77
[2024-04-29] MEDS ORDERED: HYDROXYZINE PAM25 M1 PO (10:25)
[2024-04-29] MEDS ORDERED: TRAMADOL HCL50 MG PO (10:25)
[2024-04-29] MEDS ORDERED: ATORVASTATIN CA40 M1 PO (10:25)
[2024-04-29] MEDS ORDERED: Ipratropium Brom3 ML NEB (10:25)
[2024-04-29] MEDS ORDERED: AMOX-CLAV 875-1 EACH PO (10:29)
== END 2024-04-29 12:37 | disposition home or self-care (01) | DRG 871 ==
LOC: ED 18:52 → EDHOLD 22:52 → 4E 22:52 → EDHOLD 23:48 → 4E 04-25 16:01
PROVIDERS: Physician Assistant Medical; Registered Nurse; Student in an Organized Health Care Education/Training Program; ADMIT Student in an Organized Health Care Education/Training Program; ATTEND Student in an Organized Health Care Education/Training Program
PROC: 5A0935A Assistance with Respiratory Ventilation, Less than 24 Consecutive Hours, High Flow/Velocity Cannula (ICD-10-PCS; principal; 2024-04-25)
PROC: 5A09357 Assistance with Respiratory Ventilation, Less than 24 Consecutive Hours, Continuous Positive Airway Pressure (ICD-10-PCS; 2024-04-25)
PROC: 5A0935A Assistance with Respiratory Ventilation, Less than 24 Consecutive Hours, High Flow/Velocity Cannula (ICD-10-PCS; 2024-04-26)
PROC: 5A0935A Assistance with Respiratory Ventilation, Less than 24 Consecutive Hours, High Flow/Velocity Cannula (ICD-10-PCS; 2024-04-27)
DX: A41.9 Sepsis, unspecified organism (principal); I21.4 Non-ST elevation (NSTEMI) myocardial infarction; J96.01 Acute respiratory failure with hypoxia; J15.69 Pneumonia due to other Gram-negative bacteria; N17.9 Acute kidney failure, unspecified; N30.01 Acute cystitis with hematuria; J90 Pleural effusion, not elsewhere classified; F23 Brief psychotic disorder; F30.10 Manic episode without psychotic symptoms, unspecified; E44.1 Mild protein-calorie malnutrition; K81.9 Cholecystitis, unspecified; E66.3 Overweight; R65.20 Severe sepsis without septic shock; Z66 Do not resuscitate; K82.8 Other specified diseases of gallbladder; I48.91 Unspecified atrial fibrillation; E03.9 Hypothyroidism, unspecified; F41.8 Other specified anxiety disorders; D53.9 Nutritional anemia, unspecified; R73.9 Hyperglycemia, unspecified; N18.9 Chronic kidney disease, unspecified; K58.9 Irritable bowel syndrome, unspecified; F43.10 Post-traumatic stress disorder, unspecified; G30.9 Alzheimer's disease, unspecified; I12.9 Hypertensive chronic kidney disease with stage 1 through stage 4 chronic kidney disease, or unspecified chronic kidney disease; F02.80 Dementia in other diseases classified elsewhere, unspecified severity, without behavioral disturbance, psychotic disturbance, mood disturbance, and anxiety; Z51.5 Encounter for palliative care; Z95.0 Presence of cardiac pacemaker; Z88.1 Allergy status to other antibiotic agents; Z90.710 Acquired absence of both cervix and uterus; Z68.29 Body mass index [BMI] 29.0-29.9, adult; X58.XXXA Exposure to other specified factors, initial encounter; Y93.89 Activity, other specified; Y92.89 Other specified places as the place of occurrence of the external cause; Y99.8 Other external cause status

== ENCOUNTER 2024-07-28 12:52 | Emergency (ER) | payer MEDICARE ==
[~2024-07-28] VITALS: Ht 154.9 cm; Wt 64.9 kg
[~2024-07-28 12:52] MED LIST changes: +ATORVASTATIN CA40 M1 PO; +ELIQUIS5 M1 PO; +HYDROXYZINE PAM25 M1 PO; +Ipratropium Brom3 ML NEB; +SYNTHROID,LEVO88 MCG PO
[2024-07-28 13:02] VITALS: BP 98/58
[2024-07-28] MEDS ORDERED: SUMATRIPTAN SU100 M1 PO (13:19)
[2024-07-28] MEDS ORDERED: ZOLPIDEM10 MG PO (13:20)
== END 2024-07-28 14:06 | disposition left against medical advice (07) ==
LOC: ED 12:52
DX: R06.02 Shortness of breath (principal); G43.909 Migraine, unspecified, not intractable, without status migrainosus; I10 Essential (primary) hypertension; F32.A Depression, unspecified; F41.9 Anxiety disorder, unspecified; I48.91 Unspecified atrial fibrillation; Z88.1 Allergy status to other antibiotic agents; Z53.21 Procedure and treatment not carried out due to patient leaving prior to being seen by health care provider

== ENCOUNTER 2024-07-28 13:56 | Emergency (ER) | payer MEDICARE ==
[~2024-07-28] VITALS: Ht 154.9 cm; Wt 64.9 kg
[~2024-07-28 13:56] MED LIST changes: +SUMATRIPTAN SU100 M1 PO; +ZOLPIDEM10 MG PO
[2024-07-28 14:02] VITALS: BP 107/56
[2024-07-28 14:30] LABS: BASO % 0.4 % (0.0-1.0); EOS # 0.2 10*3/uL (0.0-0.4); EOS % 2.9 % (1.0-4.0); HEMATOCRIT 38.5 % (37.0-47.0); LYMPH # 1.9 10*3/uL (1.3-4.4); LYMPH % 26.9 % (27.0-41.0); MEAN CORPUSCULAR HGB 30.8 pg (27.0-31.0); MEAN CORPUSCULAR HGB CONC 31.4 g/dl (33.0-37.0); MEAN PLATELET VOLUME 9.4 fl (9.6-12.3); MONO # 0.8 10*3/uL (0.1-1.0); MONO % 11.3 % (3.0-9.0); NEUT % 57.3 % (47.0-73.0); PLATELET COUNT AUTOMATED 192 10*3/uL (130-400); RED BLOOD COUNT 3.93 10*6/uL (4.10-5.10); RED CELL DISTRI WIDTH 15.2 % (0-14.5); WHITE BLOOD COUNT 6.9 10*3/uL (4.8-10.8)
[2024-07-28 14:53] LABS: POTASSIUM 5.1 mmol/L (3.4-5.1)
== END 2024-07-28 17:15 | disposition home or self-care (01) ==
LOC: ED 13:56
PROVIDERS: Physician Assistant Medical
DX: J96.10 Chronic respiratory failure, unspecified whether with hypoxia or hypercapnia (principal); F41.9 Anxiety disorder, unspecified; F31.9 Bipolar disorder, unspecified; I11.0 Hypertensive heart disease with heart failure; I50.9 Heart failure, unspecified; G43.909 Migraine, unspecified, not intractable, without status migrainosus; I48.91 Unspecified atrial fibrillation; Z88.1 Allergy status to other antibiotic agents; Z88.8 Allergy status to other drugs, medicaments and biological substances; Z90.710 Acquired absence of both cervix and uterus; Z90.89 Acquired absence of other organs

== ENCOUNTER → 2025-01-31 | Outpatient (CLI) | payer MEDICARE | END | disposition home or self-care (01) | LOC: RAD 14:28 | PROVIDERS: ATTEND Nurse Practitioner Family | DX: K59.09 Other constipation (principal); M47.816 Spondylosis without myelopathy or radiculopathy, lumbar region; I72.8 Aneurysm of other specified arteries; R19.7 Diarrhea, unspecified ==